=== PATIENT | female | born 1990 | race African-American/Black ===

== ENCOUNTER 2024-07-30 05:40 | Inpatient (IN) | payer OTHER ==
[2024-07-30 06:47] VITALS: BMI 36.6
[2024-07-30] MEDS: ELECTROLYTE-148 SOLN 1,000 ML IV ONE (07:00)
[2024-07-30] MEDS: CITRIC ACID/SODIUM CITRATE 30 ML UNIT-DOSE CUP PO ONE (07:25)
[2024-07-30] MEDS: ELECTROLYTE-148 SOLN 1,000 ML IV SCH (07:42)
[2024-07-30] MEDS ORDERED: FENTANYL CITRATE/PF 50 MCG/ML VIAL ONE ×2 (07:57→08:01)
[2024-07-30] MEDS ORDERED: morphine SULFATE/PF 1 MG/2 ML (2cc Syringe - QUVA) ONE (07:57)
[2024-07-30] MEDS ORDERED: ceFAZolin SODIUM 1 GM VIAL ONE (08:01)
[2024-07-30] MEDS ORDERED: ONDANSETRON 4 MG/2 ML VIAL ONE ×2 (08:29→18:36)
[2024-07-30] MEDS ORDERED: OXYTOCIN 10 UNITS/ML VIAL ONE ×2 (08:37→08:47)
[2024-07-30] MEDS: TRIAMCINOLONE ACET 40MG/1ML VIAL IM ONE (09:15)
[2024-07-30] MEDS ORDERED: METHYLERGONOVINE MALEATE 0.2 MG/1 ML AMP IM PRN (10:23)
[2024-07-30] MEDS ORDERED: LABETALOL HCL 200 MG TABLET (FP) ONE (11:27)
[2024-07-30] MEDS ORDERED: OXYTOCIN 20 UNITS in 0.9% NS 20 UNIT/1,000 ML INFUS.BAG IV ONE (11:27)
[2024-07-30] MEDS: OXYTOCIN 20 UNITS in 0.9% NS 20 UNIT/1,000 ML INFUS.BAG IV SCH (11:35)
[2024-07-30] MEDS: LABETALOL HCL 200 MG TABLET (FP) PO SCH (11:35)
[2024-07-30] MEDS ORDERED: ONDANSETRON 4 MG/2 ML VIAL IVPUSH PRN (11:43)
[2024-07-30] MEDS ORDERED: oxyCODONE HCL 5 MG TABLET PO PRN ×2 (22:24)
[2024-07-31] MEDS: ACETAMINOPHEN 1000 MG/100 ML BAG IVPB PRN (00:17)
[2024-07-31] MEDS: IBUPROFEN 800 MG/8 ML IJ IVPB PRN (04:43)
[2024-07-31 07:24] LABS: ABSOLUTE IMMATURE GRANULOCYTES 0.15 x10^3/uL (0.0-0.031); BASOPHILS # 0.02 x10^3/uL (0.01-0.08); HEMATOCRIT 31.2 % (34.1-44.9); HEMOGLOBIN 10.5 g/dL (11.2-15.7); MCHC 33.7 g/dl (32.2-35.5); MEAN CELL VOLUME 85.2 fl (79.4-94.8); MEAN PLT VOLUME 11.3 fl (9.4-12.3); MONOCYTE # 1.52 x10^3/uL (0.24-0.86); MONOCYTE % 11.3 % (4.7-12.5); PLATELET COUNT 189 x10^3/uL (182-369); RDW 14.3 % (12.1-16.8)
[2024-07-31 08:36] VITALS: RESP 18
[2024-07-31] MEDS: TENOFOVIR DISOPROXIL FUMARATE 300 MG TABLET PO SCH (09:10)
[2024-07-31] MEDS: DIPHTH,PERTUSS(ACELL),TET 0.5 ML DISP.SYRIN IM ONE (09:11)
[2024-07-31] MEDS: FERROUS SO4 325 MG TABLET (FP) PO SCH (09:11)
[2024-07-31] MEDS: PRENATAL VITAMINS W/ FOLIC ACID TABLET (FP) PO SCH (09:11)
[2024-07-31] MEDS ORDERED: BISACODYL 10 MG SUPP.RECT RC PRN (10:24)
[2024-07-31] MEDS: SIMETHICONE 80 MG TAB.CHEW (FP) PO PRN (13:03)
[2024-07-31] MEDS: IBUPROFEN 600 MG TABLET (FP) PO PRN (13:03)
[2024-08-01] MEDS: ACETAMINOPHEN 325 MG TABLET (FP) PO PRN (13:39)
[2024-08-01] MEDS: SENNOSIDES/DOCUSATE COMBO (SENNA PLUS) TABLET (UD) PO PRN (21:23)
[2024-08-02 10:09] VITALS: BP 134/96; PULSE 87; TEMP 98.6
== END 2024-08-02 13:45 | disposition home or self-care (01) | DRG 540 ==
LOC: JLDR 05:40 → J3W 12:05
PROVIDERS: ADMIT Obstetrics & Gynecology; ATTEND Obstetrics & Gynecology
PROC: 10D00Z1 Extraction of Products of Conception, Low, Open Approach (ICD-10-PCS; principal; 2024-07-30)
DX: O34.219 Maternal care for unspecified type scar from previous cesarean delivery (principal); Z3A.37 37 weeks gestation of pregnancy; Z37.0 Single live birth
CPT/HCPCS: 36415; 80053; 85025; 85610; 85730; 86704; 86705; 86707; 86780; 86803; 86850; 86900; 86901; 87340; 87350; 87389; 87517; 88307-TC; 90715; J0131